=== PATIENT | female | born 1975 | race Caucasian/White ===

== ENCOUNTER 2017-02-16 01:54 | Emergency (ER) | payer MEDICAID ==
[~2017-02-16] VITALS: Ht 170.2 cm; Wt 101.0 kg
[~2017-02-16 01:54] MED LIST: ARIP20TA2 PO; SULF1TAB48 PO
[2017-02-16 12:16] VITALS: BP 111/77
== END 2017-02-16 12:17 | disposition home or self-care (01) ==
LOC: ER 01:54
DX: J06.9 Acute upper respiratory infection, unspecified (principal); F17.210 Nicotine dependence, cigarettes, uncomplicated; F12.10 Cannabis abuse, uncomplicated; F15.10 Other stimulant abuse, uncomplicated; Z90.49 Acquired absence of other specified parts of digestive tract
CPT/HCPCS: 99282

== ENCOUNTER 2020-09-03 03:15 | Emergency (ER) | payer MEDICAID, OTHER ==
[~2020-09-03] VITALS: Ht 170.2 cm; Wt 87.0 kg
[2020-09-03] MEDS ORDERED: IBUPROFEN 600MG TABLET PO ONE (03:45)
[2020-09-03 04:53] VITALS: BP 120/60
== END 2020-09-03 05:04 | disposition home or self-care (01) ==
LOC: ER 03:15
DX: M79.672 Pain in left foot (principal); M79.671 Pain in right foot; F31.9 Bipolar disorder, unspecified; F15.10 Other stimulant abuse, uncomplicated; F12.10 Cannabis abuse, uncomplicated
CPT/HCPCS: 73620; 99283

== ENCOUNTER 2020-12-19 02:56 | Emergency (ER) | payer MEDICAID, OTHER ==
[~2020-12-19] VITALS: Ht 170.2 cm; Wt 77.0 kg
[2020-12-19 03:03] VITALS: BP 142/78
== END 2020-12-19 03:14 | disposition left against medical advice (07) ==
LOC: ER 02:56
DX: Z53.21 Procedure and treatment not carried out due to patient leaving prior to being seen by health care provider (principal)

== ENCOUNTER 2020-12-22 18:54 | Emergency (ER) | payer OTHER, MEDICAID ==
[~2020-12-22] VITALS: Ht 170.2 cm; Wt 91.0 kg
[2020-12-22 20:01] VITALS: BP 109/73
== END 2020-12-22 20:04 | disposition home or self-care (01) ==
LOC: ER 18:54
DX: R68.83 Chills (without fever) (principal); F31.9 Bipolar disorder, unspecified; Z20.822 Contact with and (suspected) exposure to COVID-19; Z87.891 Personal history of nicotine dependence; Z88.8 Allergy status to other drugs, medicaments and biological substances
CPT/HCPCS: 99283; C9803; U0003; U0005